=== PATIENT | female | born 2000 | race African-American/Black ===

== ENCOUNTER 2025-02-24 02:00 | Emergency (ER) | payer OTHER ==
[~2025-02-24] VITALS: Ht 154.9 cm; Wt 67.3 kg
[2025-02-24 02:02] VITALS: BP 121/83; PULSE 86; RESP 14; TEMP 98.1; O2SAT 100
== END 2025-02-24 03:19 | disposition home or self-care (01) ==
LOC: EMS 02:00
DX: F41.9 Anxiety disorder, unspecified (principal); R00.2 Palpitations; Z91.013 Allergy to seafood; Z91.018 Allergy to other foods
CPT/HCPCS: 93005; 99283